=== PATIENT | female | born 1965 | race Caucasian/White ===

== ENCOUNTER 2017-01-28 22:20 | Emergency (ER) | payer OTHER ==
[~2017-01-28] VITALS: Ht 157.5 cm; Wt 95.3 kg
--- NOTE | ~2017-01-28 | EKG ---
[place] [address] [facility] [place] [address] ELECTROCARDIOGRAM REPORT Name: TITO ALLAN [id number] Admission: 01/28/17 Attend Phys: Discharge: 01/28/17 Date of : 69 Report #: [id number] THIS REPORT FOR: //name// [facility] ED Test Date: 2017-01-28 Test Time: 22:59:39 Pat Name: TITO ALLAN Department: Room: Gender: F [employer] Operator: NIGEL : 1965 Requested By: Priyank Wellington Order Number: [id number] MD: Johnson Mendoza Measurements Intervals [place] Rate: 92 P: 46 NC: 154 QRS: -14 QRSD: 76 T: -15 QT: 372 QTc: 461 Interpretive Statements Sinus rhythm Low voltage, precordial leads Consider anterior infarct Borderline T abnormalities No previous ECG available for comparison Electronically Signed On 01-30-2017 8:03:34 CDT by Johnson Mendoza [email or web address] <ELECTRONICALLY SIGNED> By: Johnson Mendoza MD, [facility] 01/30/17 [id number] Johnson Mendoza MD, FACC /EPI
[~2017-01-28 22:20] MED LIST: ASPIR 8181 MG PO; ERYTHROMYCIN E3.5 G3 OPHTHALMIC; KEFLEX500 MG PO
[2017-01-28 22:21] VITALS: BP 147/88
[2017-01-28] MEDS ORDERED: CETIRIZINE HCL10 MG PO (22:35)
[2017-01-28 23:03] LABS: ABSOLUTE NEUTROPHILS 12.2 thou/uL (1.4-8.2); BASOPHILS 0.5 % (0.0-2.0); EOSINOPHILS 7.1 % (0.0-3.0); HEMATOCRIT 46.9 % (37.0-47.0); HEMOGLOBIN 15.9 gm/dL (12.0-15.0); LYMPHOCYTES 14.3 % (24.0-44.0); MCHC 33.8 g/dL (28.0-37.0); MCV 85.8 fL (80.0-100.0); MONOCYTES 5.4 % (1.0-8.0); PLATELET COUNT 322 thou/uL (150-400); POLYS 72.7 % (36.0-66.0); RBC 5.47 mil/uL (4.20-5.00); RDW 13.8 % (10.5-14.5); WBC 16.7 thou/uL (4.0-11.0)
[2017-01-28 23:10] LABS: MANUAL DIFF NO
[2017-01-28 23:16] LABS: ANION GAP 12 mmol/L (7-16); BUN 15 mg/dL (7-18); CALCIUM 9.1 mg/dL (8.5-10.1); CHLORIDE 102 mmol/L (98-107); CO2 27 mmol/L (21-32); GLUCOSE 160 mg/dL (74-106); POTASSIUM 3.8 mmol/L (3.5-5.1); SODIUM 141 mmol/L (136-145)
[2017-01-28 23:23] LABS: ALBUMIN 4.1 g/dL (3.4-5.0); ALKALINE PHOSPHATASE 92 U/L (46-116); MAGNESIUM 2.1 mg/dL (1.8-2.4); SGOT 18 U/L (15-37); SGPT 23 U/L (30-65); TOTAL BILIRUBIN 0.4 mg/dL (<0.1-1.0); TOTAL PROTEIN 7.4 g/dL (6.4-8.2); TROPONIN-I < 0.04 ng/mL (<0.04-0.07)
[2017-01-28] MEDS ORDERED: TRAMADOL 50 MG50 MG PO (23:30)
[2017-01-28] MEDS ORDERED: NAPROSYN500 MG PO (23:30)
== END 2017-01-28 23:39 | disposition home or self-care (01) ==
LOC: ER 22:20
PROVIDERS: Emergency Medicine
DX: R20.2 Paresthesia of skin (principal); R73.09 Other abnormal glucose; D72.829 Elevated white blood cell count, unspecified; Z88.0 Allergy status to penicillin; V80.010A Animal-rider injured by fall from or being thrown from horse in noncollision accident, initial encounter; Y93.89 Activity, other specified; Y92.89 Other specified places as the place of occurrence of the external cause; Y99.8 Other external cause status